=== PATIENT | female | born 1985 | race Caucasian/White ===

== ENCOUNTER 2016-10-09 08:55 | Emergency (ER) | payer OTHER ==
[~2016-10-09] VITALS: Ht 162.6 cm; Wt 59.0 kg
[~2016-10-09 08:55] MED LIST: TYLENOL #31 TAB PO; ZOFRAN4 M1 SL
[2016-10-09 09:00] VITALS: BP 118/71
--- NOTE | 2016-10-09 09:16 | ED UPPER/LOWER EXTREMITY COMPL ---
History of Present Illness General Chief Complaint: Foot or Ankle Injury Stated Complaint: L FOOT PAIN Source: patient Exam Limitations: no limitations Vital Signs & Intake/Output Vital Signs & Intake/Output Vital Signs Date Time Temp Pulse Resp B/P Pulse O2 O2 Flow FiO2 Ox Delivery Rate 10/09 0900 97.0 76 20 118/71 99 Room Air Room Air Allergies Coded Allergies: NO KNOWN ALLERGIES (10/09/16) Reconcile Medications Omeprazole 40 MG CAPSULE. 1 CAP PO DAILY REFLUX (Reported) Triage Note: PT TO ED S/P "I WAS WORKING OUT AND TWISTED LEFT ANKLE, I HEARD A POP". PT AMBULATORY BUT LIMPING INTO TRIAGE, REFUSING WHEELCHAIR. Triage Nurses Notes Reviewed? yes Onset: Abrupt Duration: constant Timing: recent history Severity: moderate Severity Numbers: 5 : No Patient currently breastfeeds: No HPI: Patient is a 30-year-old female who presents to emergency room stating yesterday while exercising she twisted her left ankle rolling it outward and which patient since has been complaining of left lateral ankle pain and lateral foot pain. Patient states that ambulation palpation ankle movements make worse. Denies any significant history of left ankle fractures or surgeries. Denies any knee pain. Has been taking Motrin with mild relief of symptoms. (DICK BOOKER) Past History Travel History Traveled to [place] past 21 day No Medical History Any Pertinent Medical History? see below for history Neurological: NONE EENT: NONE Cardiovascular: NONE Respiratory: AIRWAY REFLUX Gastrointestinal: GERD Hepatic: NONE Renal: NONE Musculoskeletal: NONE Psychiatric: NONE Endocrine: NONE Blood Disorders: NONE Cancer(s): NONE SUPPLY AND DISTRIBUTION MANAGER/Reproductive: NONE Surgical History Surgical History: Psychosocial History What is your primary language South [place] Tobacco Use: Never used ETOH Use: occasional use Illicit Drug Use: denies illicit drug use Family History Hx Contributory? No (DICK BOOKER) Review of Systems Review of Systems Constitutional: Reports: no symptoms. EENTM: Reports: no symptoms. Respiratory: Reports: no symptoms. Cardiovascular: Reports: no symptoms. Gastrointestinal/Abdominal: Reports: no symptoms. Genitourinary: Reports: no symptoms. Musculoskeletal: Reports: see HPI, joint pain. Skin: Reports: no symptoms. Neurological/Psychological: Reports: no symptoms. Hematologic/Endocrine: Reports: no symptoms. Immunological: Reports: no symptoms. All Other Systems: Reviewed and Negative (DICK BOOKER) Physical Exam Physical Exam General Appearance: no apparent distress, alert, comfortable Neurologic/Tendon: normal sensation, normal motor functions, normal tendon functions, responds to pain, no evidence tendon injury, no pulse deficit Skin: intact, normal color, warm/dry Comments: Well-developed well-nourished no apparent distress. HEENT: Atraumatic, extraocular motion intact Neck: Supple, no lymphadenopathy Back: Nontender Respiratory: No respiratory distress Extremities: Left knee normal inspection nontender Left ankle noted mild lateral malleoli tenderness and swelling decreased active range of motion noted Left foot mild lateral foot point tenderness no swelling Pedal pulses +2 dermatomes intact Neuro: Alert and oriented x3 Psych: Mood affect normal, normal memory normal judgment. (DICK BOOKER) Progress Differential Diagnosis: arterial insufficiency, compartment syndrome, contusion, dislocation, DVT, fracture, gout, septic arthritis, sprain, tendon injury Plan of Care: Orders Procedure Date/time Status XRY-FOOT COMPLETE, LEFT 10/09 905 Active XRY-ANKLE 3 OR MORE VIEWS L 10/09 905 Active No osseous injury noted on x-ray findings were patient was symptomatic with pain. Toi wrap was applied with Aircast stirrup pre-and post-neurovascular was intact crutches were advised for weightbearing as tolerated status (DICK BOOKER) Diagnostic Imaging: Viewed by Me: Radiology Read. Radiology Impression: no acute abnormality Comments: PATIENT: LELA HARRIS PRESENT AGE: 30 PATIENT ACCOUNT NO: [id number] : 85 LOCATION: [facility] ORDERING PHYSICIAN: DICK HOLDEN SERVICE DATE: 10/09/16 EXAM TYPE: RAD - XRY-ANKLE 3 OR MORE VIEWS L; XRY-FOOT COMPLETE, LEFT EXAMINATION: XR LEFT FOOT AND ANKLE CLINICAL INFORMATION: Pain and swelling status post injury, difficult ambulation. COMPARISON: None. TECHNIQUE: 3 views of the left ankle and foot were performed. FINDINGS: Ankle: Bone mineral density is maintained without evidence of fracture or dislocation. No focal osseous lesions are seen. Joint space is maintained without productive or erosive changes. Foot: Bone mineral density is maintained without evidence of fracture or dislocation. No focal osseous lesions are seen. Joint space is maintained without productive or erosive changes. IMPRESSION: No fracture or dislocation left ankle and foot. (DICK BOOKER) Departure Departure Disposition: HOME OR SELF CARE Condition: Stable Clinical Impression Primary Impression: Left ankle sprain Secondary Impressions: Sprain of left foot Referrals: RUTH MCKEON,DARRIN PAULINO MD,YASMANI Tyson (PCP/Family) Additional Instructions: As discussed begin to elevate THE foot for swelling. Begin icing the area directly 20 minutes every 2 hours per begin using the Toi wrap and Aircast STIR- up for swelling and support, begin using the crutches UNITL YOU CAN walk without pain. If symptoms worsen return to emergency room. Begin [id number] ibuprofen 3 tablets of 200 mg every 8 hours for pain and inflammation. If no better in one week follow-up with orthopedic doctor for further evaluation treatment. Departure Forms: Customer Survey General Discharge Information (DICK BOOKER) PA/MANAGER STATISTICAL Co-Sign Statement Statement: ED Attending supervision documentation- [] I saw and evaluated the patient. I have also reviewed all the pertinent lab results and diagnostic results. I agree with the findings and the plan of care as documented in the PA's/MANAGER STATISTICAL's documentation. [x] I have reviewed the ED Record and agree with the PA's/MANAGER STATISTICAL's documentation. [] Additions or exceptions (if any) to the PAs/MANAGER STATISTICAL's note and plan are summarized below: [] (WANDA SMALLWOOD DO)
--- NOTE | 2016-10-09 09:51 | RADIOLOGY REPORT ---
EXAMINATION: XR LEFT FOOT AND ANKLE CLINICAL INFORMATION: Pain and swelling status post injury, difficult ambulation. COMPARISON: None. TECHNIQUE: 3 views of the left ankle and foot were performed. FINDINGS: Ankle: Bone mineral density is maintained without evidence of fracture or dislocation. No focal osseous lesions are seen. Joint space is maintained without productive or erosive changes. Foot: Bone mineral density is maintained without evidence of fracture or dislocation. No focal osseous lesions are seen. Joint space is maintained without productive or erosive changes. IMPRESSION: No fracture or dislocation left ankle and foot.
[2016-10-09] MEDS ORDERED: OMEPRAZOLE40 M1 PO (09:57)
== END 2016-10-09 10:35 ==
LOC: ERH 08:55
DX: S93.402A Sprain of unspecified ligament of left ankle, initial encounter (principal); S93.602A Unspecified sprain of left foot, initial encounter; X50.0XXA Overexertion from strenuous movement or load, initial encounter
CPT/HCPCS: 73610-LT; 73630-LT

== ENCOUNTER → 2018-03-28 | Day surgery (SDC) | payer OTHER ==
[~2018-03-28] VITALS: Ht 162.6 cm; Wt 59.0 kg
[~2018-03-28] MED LIST changes: +OMEPRAZOLE40 M1 PO
--- NOTE | 2018-04-03 13:31 | Operative Report ---
Operative/Inv Procedure Report Surgery Date: 03/28/18 Name of Procedure: Excision of pilonidal cyst, intermediate complexity closure Pre-Operative Diagnosis: Pilonidal cyst with abscess Post-Operative Diagnosis: Same Estimated Blood Loss: scant Surgeon/Spinal Surgeon: Elías MCKEON,Dustin Flores Anesthesia: local monitored anesthesi Operative/Procedure Note Note: Patient was placed on the OR table supine, after successful induction of general anesthesia pt was turned into prone, and then the buttocks were taped clipped prepped and draped in the usual sterile fashion. The indurated / healig abscess cavity area was at the top of the gluteal cleft in the middle. An incision was planned to excise that upper portion of gluteal cleft that contains the crypts and then a second one at the top to the left to excise the abscess cavity and the cyst. This midline elliptical incision was drawn and then injected with local anesthetic and then made with a 15 blade. Once through the dermis, the excision proceeded laterally with cautery and deep to the fascia covering the coccyx, excising this scarred and granulation tissue in one piece. After this was removed the space was inspected for hemostasis especially at the dermis, with cautery and then reapproximated in layers with multiple interrupted 3-0 Vicryl sutures followed by 4-0 nylon for the skin itself, but at the top we left it open and wicked it with iodoform, followed by bacitracin and fluff and gauze. EBL minimal lap and sponge counts correct wound expectancy contaminated IV fluids crystalloid complications none patient tolerated the procedure well was awakened awakened and returned to the recovery room in satisfactory condition.
== END ==
LOC: STS 02:15
DX: L05.01 Pilonidal cyst with abscess (principal); K21.9 Gastro-esophageal reflux disease without esophagitis
CPT/HCPCS: 81025; J0131; J0690; J1100; J1885; J2250; J2405